=== PATIENT | male | born 1960 | race Caucasian/White ===

== ENCOUNTER 2022-07-16 14:40 | Outpatient (CLI) | payer OTHER, SELFPAY | END 2022-07-16 14:41 | disposition home or self-care (01) | PROVIDERS: PCP Family Medicine; Visit Provider Nurse Practitioner Family | DX: R19.7 Diarrhea, unspecified (principal) | CPT/HCPCS: 87045; 87046; 87329; 87427 ==

== ENCOUNTER 2023-11-04 08:41 | Outpatient (CLI) | payer OTHER, SELFPAY | END 2023-11-04 08:42 | disposition home or self-care (01) | PROVIDERS: PCP Family Medicine; Visit Provider Family Medicine | DX: Z00.00 Encounter for general adult medical examination without abnormal findings (principal); Z13.1 Encounter for screening for diabetes mellitus; Z12.5 Encounter for screening for malignant neoplasm of prostate | CPT/HCPCS: 80048; 84153 ==

== ENCOUNTER 2024-05-13 08:24 | Outpatient (CLI) | payer OTHER, SELFPAY | END 2024-05-13 08:25 | disposition home or self-care (01) | LOC: NFLDREF 05-16 02:27 | PROVIDERS: PCP Family Medicine; Referring Provider Family Medicine; Visit Provider Family Medicine | DX: E66.9 Obesity, unspecified (principal); R53.83 Other fatigue | CPT/HCPCS: 84270; 84402; 84403 ==

== ENCOUNTER 2024-12-12 04:24 | Emergency (ER) | payer OTHER, SELFPAY ==
--- OUTSIDE RECORDS SUMMARY | 2024-12-12 04:26 | XMS_ITS | Clinical Summary ---
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 Gender Identity Not on file Sexual Orientation Not on file Obstetrics History Last Filed Vital Signs Vital Sign Reading Time Taken Comments Blood Pressure 137/77 09/04/2020 12:23 PM CDT Pulse 61 09/04/2020 12:23 PM CDT Temperature 37.1 C (98.7 F) 09/04/2020 12:23 PM CDT Respiratory Rate 16 09/04/2020 12:23 PM CDT Oxygen Saturation 95% 09/04/2020 12:23 PM CDT Inhaled Oxygen Concentration - - Weight 95.3 kg (210 lb) 09/04/2020 12:23 PM CDT Height 177.8 cm (5' 10) 09/04/2020 12:23 PM CDT Body Mass Index 30.13 09/04/2020 12:23 PM CDT Plan of Treatment Health Maintenance Due Date Last Done Comments Tdap 1971 Depression screening for age 12+ 1972 HIV for age 15-65 1975 BMI (ht and wt on same day) for age 18+ 1978 Hepatitis C screening for age 18-79 1978 Tetanus booster 1980 Colonoscopy through age 75 2005 Lipids for age 45-75 2005 Pneumococcal series for age 50+ (1 of 1 - PCV) 010 Zoster (shingles) series for age 50+ (1 of 2) 07/17/20 10 COVID-19 vaccine series (1 - 2023- season) Influenza for age 50-64 07/18/2024 RSV vaccine for adults or pr egnancy (1 - 1-dose 75+ series) 2035 Insurance MEDICA IFB MEDICA CHOICE Care Teams Cd Manufacturing Supervisor Relationship Specialty Start Date End Date Pcp, No . PCP - General 11/23/24
[2024-12-12 04:44] VITALS: BP 157/86; PULSE 81; RESP 18; TEMP 36.7; O2SAT 96; BMI 29.3
--- NOTE | 2024-12-12 04:49 | CRLHL7_ITS ---
For Patients: As a result of the Century Cures Act, medical imaging exams and procedure reports are released immediately into your electronic medical record. You may view this report before your referring provider. If you have questions, please contact your health care provider. Indication: Chest pain. Technique: Two view(s) of the chest. Comparison: None available. Findings: Normal cardiomediastinal silhouette and pulmonary vasculature. Lungs are mildly hypoinflated. No focal consolidation, pleural effusion or pneumothorax. No acute osseous abnormality. Impression: Mildly hypoinflated lungs without acute abnormality identified. Dictated by Shannon Cotter MD @ 12/12/2024 5:17:15 AM (Electronically Signed)
[2024-12-12 05:05] VITALS: TEMP 36.7
[2024-12-12] MEDS: KETOROLAC 15 MG/ML inj IVP (05:05)
[2024-12-12 05:19] LABS: Basophils Absolute Auto 0.05 K/uL (0.00-0.30); Basophils Percent Auto 0.5 % (0.0-3.0); Eosinophils Percent Auto 3.3 % (0.0-7.0); Hematocrit 45.8 % (37.0-53.0); Hemoglobin* 15.3 gm/dL (13.5-17.5); Immature Granulocytes Abs Auto 0.02 K/uL (0.00-0.30); Immature Granulocytes Pct Auto 0.2 %; Lymphocytes Absolute Auto 1.94 K/uL (0.90-2.90); Lymphocytes Percent Auto 21.3 % (20-44); Mean Corpuscular HGB Conc 33 gm/dL (32-36); Mean Corpuscular Hemoglobin 30 pg (26-34); Mean Corpuscular Volume 91 fL (80-100); Monocytes Percent Auto 7.6 % (0.0-11.0); Neutrophils Absolute Auto 6.12 K/uL (1.7-7.0); Neutrophils Percent Auto 67.1 % (42.0-72.0); Platelet Count* 214 K/uL (140-440); RDW Coefficient of Variation % 12.5 % (11.5-15.5); Red Blood Count 5.03 m/uL (4.30-5.90); White Blood Count* 9.12 K/uL (4.50-11.00)
[2024-12-12 05:24] VITALS: O2SAT 96
--- NOTE | 2024-12-12 05:29 | ED.GENADULT ---
HPI - General Adult General Chief complaint: Chest Pain Stated complaint: chest pain Time Seen by Provider: 12/12/24 04:42 History of Present Illness HPI narrative: 64 old male presents the emergency department for evaluation of chest pain, central sternal area, started about 90 minutes prior to arrival. No trauma or injury. No shortness of breath. Worse with deep breath, lying flat. No history of DVT or PE. No productive cough or fever. No prior history of similar symptoms. 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 No history of acute coronary syndrome, cardiac stents or stress testing. Did not try any interventions prior to coming to ED. No nausea and vomiting, no diarrhea. No family history of heart disease. Past medical history is notable only for testosterone gel supplementation, this is his only medication, denies allergies. ROS is notable for the chest pain only, otherwise denies times 12 systems. Related Data Previous Rx's ?Medication ?Instructions ?Recorded testosterone 2 pump topical QDAY #75 grams 05/19/24 Allergies Allergy/AdvReac Type Severity Reaction Status Date / Time No Known Drug Allergies Allergy Verified 12/12/24 04:46 [facility] Medical History COVID-19 ?U07.1 - COVID-19 (ICD-10) Traumatic pneumothorax ?S27.0XXA - Traumatic pneumothorax, initial encounter (ICD-10) Surgical History History of appendectomy ?Z90.49 - Acquired absence of other specified parts of digestive tract (ICD-10) Social History Smoking Status: Never smoker Second hand tobacco smoke exposure: No How often do you have a drink containing alcohol: never AUDIT-C Alcohol total score: 0 Non-prescribed substance use: denies use Exam Const: Vital Signs, click to edit/add: Vital Signs - 24 hr 12/12/24 04:44 12/12/24 05:05 12/12/24 05:24 Temperature 98.0 F 98.0 F Pulse Rate [Right Pulse Oximeter] 81 Respiratory Rate 18 Blood Pressure [Ri ght Upper Arm] 157/86 H Pulse Oximetry 96 96 Oxygen Delivery Me thod Room Air 12/12/24 05:45 Temperature 98.0 F Pulse Rate [Right Pulse Oximeter] Respiratory Rate Blood Pressure [Ri ght Upper Arm] Pulse Oximetry Oxygen Delivery Me thod Documenting provider has reviewed patient's vital signs: yes Common normals: no apparent distress and alert General appearance: cooperative and well kempt Other: Appears uncomfortable, good historian. HENMT: Common normals: normocephalic, moist oral mucous membranes and oropharynx normal Head and scalp: normocephalic Mouth: oral and palatal mucosa normal Eye: Common normals: conjunctivae normal General eye: normal appearance of both eyes Conjunctiva: conjunctiva(e) normal Neck & C-Spine: Common normals: full ROM, no lymphadenopathy and no meningeal signs General: normal visual inspection Chest: Common normals: inspection of chest normal and palpation of chest normal Resp: Common normals: normal respiratory effort, no use of accessory muscles and clear to auscultation bilaterally Effort & inspection: able to speak in complete sentences Auscultation: clear to auscultation bilaterally Cardio: Common normals: regular rate, regular rhythm, S1 normal heart sound, S2 normal heart sound and no murmurs Rate: regular rate Rhythm: regular rhythm Heart sounds: S1 normal and S2 normal GI: Common normals: Normal to inspection, nondistended, normoactive bowel sounds present, soft to palpation, non-tender, no hepatosplenomegaly and no masses Palpation: soft and no hepatosplenomegaly Extremity: Common normals: normal to inspection and no pedal edema Neuro: Sensorium/orientation: alert Meningeal signs: no meningeal signs Speech: speech normal Motor exam: no movement abnormalities noted Psych: Appearance: well kempt Attitude: engaged Insight: insight good Judgement: judgment good Skin: Common normals: no rashes or lesions noted General skin exam: no rashes or lesions noted Course Course ED Course: 64-year-old male with acute chest pain. Differential diagnosis including acute coronary syndrome, arrhythmia, pulmonary embolism, pericarditis, pleurisy, pneumonia, musculoskeletal etiology, GERD, amongst others. Will place peripheral IV, give Toradol for pain. Chest x-ray, typical labs. Repeat troponins and 2 hours. 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 Await findings. Reevaluation(s) Time of Reevaluation #1: 06:23 Reevaluation #1: Patient feeling somewhat better after Toradol and oxycodone. Was sleeping upon my re-evaluation. I let him know that all of his labs are looking great, chest x-ray is reassuring as well. EKG and cardiac monitoring are reassuring. I suspect this is a case of pleurisy, we are seeing a few of these in the ED. usually this is viral induced. There are no signs of significant pericarditis on EKG but certainly this could be the case as well. We will be obtaining a 2nd troponin in about a 1/2 hour and if this looks normal, will plan to discharge him home. I have recommended a course of prednisone 20 mg b.i.d. for 5 days and given a limited supply of oxycodone. Counseled on primary use of Tylenol 1000 mg every 6 hours for pain control. Alarm symptoms like severe shortness of breath, severe pain, persistent high fevers would all warrant repeat ED evaluation. Symptoms will last for longer than the course of prednisone, typically for a few weeks. Relapses can happen as well. Follow up with primary care for mild symptoms, ED for severe. Written instructions provided, all questions answered. Time of Reevaluation #2: 07:07 Reevaluation #2: Update: 2nd troponin negative, as expected. Patient will discharge home with plan for prednisone, Tylenol and a few oxycodone with alarm symptoms reviewed Vital Signs Vital signs: Initial Vital Signs Temperature 98.0 F 12/12/24 04:44 Temperature Source Temporal Artery Scan 12/12/24 04:44 Pulse Rate 81 12/12/24 04:44 Pulse Rhythm Regular 12/12/24 04:44 Pulse Strength 3+ Normal 12/12/24 04:44 Respiratory Rate 18 12/12/24 04:44 Blood Pressure 157/86 H 12/12/24 04:44 Blood Pressure Mean 109 H 12/12/24 04:44 Blood Pressure Position Sitting 12/12/24 04:44 Pulse Oximetry 96 12/12/24 04:44 Oxygen Delivery Method Room Air 12/12/24 04:44 Vital Signs Temperature 98.0 F 12/12/24 04:44 Pulse Rate 81 12/12/24 04:44 Respiratory Rate 18 12/12/24 04:44 Blood Pressure 157/86 H 12/12/24 04:44 Pulse Oximetry 96 12/12/24 04:44 Oxygen Delivery Method Room Air 12/12/24 04:44 Temperature 98.0 F 12/12/24 05:45 Pulse Rate 81 12/12/24 04:44 Respiratory Rate 18 12/12/24 04:44 Blood Pressure 157/86 H 12/12/24 04:44 Pulse Oximetry 96 12/12/24 05:24 Oxygen Delivery Method Room Air 12/12/24 04:44 Medications Administered Medications: Discontinued Medications Generic Name Dose Route Start Last Admin Trade Name Mlyes PRN Reason Stop Dose Admin Ketorolac Tromethamine 15 mg 12/12/24 04:56 12/12/24 05:05 Ketorolac 15 Mg/Ml Inj IVP 12/12/24 04:57 15 mg ONCE ONE Administration Oxycodone HCl 5 mg 12/12/24 05:37 12/12/24 05:49 Oxycodone 5 Mg Tablet PO 12/12/24 05:38 5 mg ONCE ONE Administration Medical Decision Making Lab Data Lab results reviewed: Yes I reviewed the patient's lab results Lab results narrative: Reassuring labs. No signs of infection, PE, severe inflammation, electrolyte abnormality, heart failure, mi Labs: Lab Results 12/12/24 Range/Units 05:05 WBC 9.12 (4.50-11.00) K/uL RBC 5.03 (4.30-5.90) m/uL Hgb 15.3 (13.5-17.5) gm/dL Hct 45.8 (37.0-53.0) % MCV 91 (80-100) fL MCH 30 (26-34) pg MCHC 33 (32-36) gm/dL RDW Coeff of Roney 12.5 (11.5-15.5) % Plt Count 214 (140-440) K/uL Neut % (Auto) 67.1 (42.0-72.0) % Lymph % (Auto) 21.3 (20-44) % [place] % (Auto) 7.6 (0.0-11.0) % Eos % (Auto) 3.3 (0.0-7.0) % Baso % (Auto) 0.5 (0.0-3.0) % Neut # (Auto) 6.12 (1.7-7.0) K/uL Lymph # (Auto) 1.94 (0.90-2.90) K/uL [place] # (Auto) 0.70 (0.00-0.90) K/UL Eos # (Auto) 0.30 (0.00-0.50) K/uL Baso # (Auto) 0.05 (0.00-0.30) K/uL Abs Immat Gran (auto) 0.02 (0.00-0.30) K/uL Imm/Tot Granulo (auto) 0.2 % D-Dimer Quant (PE/DVT) 0.36 (0.00-0.50) ug/ml Sodium 144 (135-149) mmol/L Potassium 4.0 (3.6-5.1) mmol/L Chloride 105 (96-114) mmol/L Carbon Dioxide 28 (20-32) mmol/L Anion Gap 11 (7-15) mEq/L BUN 13 (7-30) mg/dL Creatinine 0.7 (0.5-1.5) mg/dL Estimated Creat Clear 79.48 Estimated GFR 103 ml/min Glucose 108 (60-115) mg/dL Calcium 9.5 (8.4-10.6) mg/dL Total Bilirubin 0.3 (0.1-1.5) mg/dL AST 36 H (12-35) U/L ALT 54 H (4-50) U/L Alkaline Phosphatase 56 (40-150) U/L Troponin I < 0.01 L (0.01-0.04) ng/mL C-Reactive Protein < 0.5 L (0.5-1.0) mg/dL NT-Pro-B Natriuret Pep 25 pg/mL Total Protein 8.2 (6.0-8.3) g/dL Albumin 4.8 (3.3-5.0) g/dL ECG Data Attestation: I personally reviewed and interpreted this ECG as follows: Prior ECG tracings: not available for review Interpretation: Normal size rhythm, rate of 72. Normal intervals and axis. No significant ST or T-wave abnormalities. Normal EKG Discharge Plan Discharge Clinical Impression: Pleuritic chest pain Patient Disposition: Home, Self-Care Condition: Improved Instructions: Pleurisy (DC) Additional Instructions: As we discussed, thankfully there are no signs of pneumonia, blood clots, abnormal heart rhythm or heart attack. There is also does not seem to be any sign of gallbladder, esophageal or stomach disease today. Hopefully the medications continue to take the edge off of your pain. What I believe you have is an inflammation of the lining of the lungs and or heart, which can be quite painful and can come on suddenly. It does not seem to be affecting the function of the heart or lungs at this time. I would like to start you on an anti-inflammatory medication, prednisone. Take 1 pill 2 times daily for the next 5 days. I will also give you prescription for a few oxycodone tablets to use if the pain is severe but would prefer that you primarily use Tylenol 1000 mg every 6 hours. You will need to be fairly diligent about the Tylenol though. High fevers, productive cough and severe shortness of breath would not be expected and I would recommend re-evaluation. Her member that shortness of breath is different than pain with inspiration. Typically, symptoms improve after a few days on the prednisone but will take a few weeks to go away completely. If you have any signs of heart dysfunction, I would recommend an echo which is an ultrasound of the heart to look more closely at the lining of the heart. This can be arranged outpatient and is not done in an emergency department. Activity Level: Activity as Tolerated Discharge Diet: Regular Prescriptions: No Action testosterone 20.25 mg/1.25 gram (1.62 %) gel in metered-dose pump 2 pump topical QDAY Qty: 75 2RF Rx Instructions: apply 1 pump amount over max area of EACH upper arm and shoulder Follow Up/Referrals: Rajiv Martin MD [Primary Care Provider] - Stand Alone [facility] Inst[facility]
[2024-12-12 05:30] LABS: Chloride* 105 mmol/L (96-114)
[2024-12-12 05:31] LABS: Albumin* 4.8 g/dL (3.3-5.0); Sodium* 144 mmol/L (135-149)
[2024-12-12 05:33] LABS: Creatinine* 0.7 mg/dL (0.5-1.5); Est. Creatinine Clearance* 79.48; Estimated Glomerular Filt Rate 103 ml/min
[2024-12-12 05:34] LABS: Alanine Aminotransferase* 54 U/L (4-50); Alkaline Phosphatase* 56 U/L (40-150); Anion Gap 11 mEq/L (7-15); Aspartate Amino Transferase* 36 U/L (12-35); Bilirubin Total* 0.3 mg/dL (0.1-1.5); Blood Urea Nitrogen* 13 mg/dL (7-30); Calcium* 9.5 mg/dL (8.4-10.6); Carbon Dioxide* 28 mmol/L (20-32); Glucose* 108 mg/dL (60-115); Slide Review Reflex No; Total Protein* 8.2 g/dL (6.0-8.3)
--- OUTSIDE RECORDS SUMMARY | 2024-12-12 05:35 | XMS_ITS | Clinical Summary ---
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 PCP - General 11/23/24
[2024-12-12 05:38] LABS: D Dimer Quantitative* 0.36 ug/ml (0.00-0.50)
[2024-12-12 05:39] LABS: C Reactive Protein* < 0.5 mg/dL (0.5-1.0)
[2024-12-12 05:42] LABS: NT Pro B Type NatriureticPept* 25 pg/mL
[2024-12-12 05:45] VITALS: TEMP 36.7
[2024-12-12 05:46] LABS: Troponin I* < 0.01 ng/mL (0.01-0.04)
[2024-12-12] MEDS: OXYCODONE 5 MG TABLET PO (05:49)
[2024-12-12 07:17] VITALS: BP 117/69; PULSE 83; RESP 16; O2SAT 94
== END 2024-12-12 07:25 | disposition home or self-care (01) ==
PROVIDERS: Emergency Provider Family Medicine; PCP Family Medicine
DX: R07.89 Other chest pain (principal)
CPT/HCPCS: 36415; 71046; 80053; 83880; 84484; 85025; 85379; 86140; 93005; 94761; 96374; 99284; 99285; A9270; J1885

== ENCOUNTER 2025-09-20 13:37 | Outpatient (CLI) | payer MEDICARE, BC, SELFPAY | END 2025-09-20 13:38 | disposition home or self-care (01) | PROVIDERS: PCP Family Medicine; Visit Provider Family Medicine | DX: Z12.5 Encounter for screening for malignant neoplasm of prostate (principal); R53.83 Other fatigue; E29.1 Testicular hypofunction; Z13.6 Encounter for screening for cardiovascular disorders | CPT/HCPCS: 80048; 80061; 82607; 84270; 84402; 84403; 84443; G0103 ==